=== PATIENT | male | born 1985 | race Caucasian/White ===

== ENCOUNTER 2019-09-06 07:54 | Emergency (ER) | payer SELFPAY ==
--- NOTE | 2019-09-06 08:14 | ED.PDOC ---
History of Present Illness - General Time Seen by Provider: 09/06/19 07:59 - History of Present Illness Initial Comments: 33 yo M PMH Anxiety/Depression ND Amphetamine and Marijuana abuse presents to ED c/o non command auditory hallucinations 'for a couple months now' Also reports chest pain sob denies visual hallucinations SI HI without suicide plan. Denies fever chills nausea vomiting diarrhea diaphoresis. No change in diet bowel or bladder symptoms disturb rest admits drinking and smoking admits FH HTN DM has no PMD for follow up no recent travel or contact with positive covid19 patients no other c/o today. Allergies/Adverse Reactions: Allergies Amoxicillin Adverse Reaction (Verified 09/06/19 08:15) Home Medications: Ambulatory Orders NK 09/06/19 Review of Systems - Review of Systems Constitutional: States: see HPI EENTM: States: see HPI Respiratory: States: see HPI Cardiology: States: see HPI Gastrointestinal/Abdominal: States: see HPI Genitourinary: States: see HPI Musculoskeletal: States: see HPI Skin: States: see HPI Neurological: States: see HPI Endocrine: States: see HPI Hematologic/Lymphatic: States: see HPI All other Systems: Reviewed and Negative Family Medical History - Family History Mother Living Status: Still Living Hx Family Diabetes: Yes Physical Exam - Physical Exam Eye Exam: bilateral normal Ears, Nose, Throat: normal ENT inspection Neck: non-tender, full range of motion Respiratory: no respiratory distress Cardiovascular/Chest: regular rate, rhythm Gastrointestinal/Abdominal: non tender, soft Rectal Exam: deferred Back Exam: normal inspection Extremity: normal range of motion, non-tender Neurologic: no motor/sensory deficits Skin Exam: normal color Progress - Progress Progress: 09/06/19 08:15 A/P-Auditory Hallucinations, Chest Pain SOB-iv bolus asa cbc cmp lipase trop ekg cxr athletic monitor pulse ox utox alcohol aspirin and tylenol levels reassess call behavioral health for psychosocial assessment EKG-non specific TW changes No STEMI 70bpm 09/06/19 08:35 09/06/19 09:32 Laboratory Tests 09/06/19 09/06/19 09/06/19 08:10 08:10 08:35 WBC 7.6 RBC 4.81 Hgb 15.3 Hct 45.2 MCV 94.0 MCH 31.7 H MCHC 33.8 RDW 13.6 Plt Count 212 MPV 8.6 Absolute Neuts (auto) 4.60 Absolute Lymphs (auto) 2.00 Absolute Monos (auto) 0.80 Absolute Eos (auto) 0.20 Absolute Basos (auto) 0.10 Neutrophils % 60.0 Lymphocytes % 25.9 Monocytes % 10.9 H Eosinophils % 2.5 Basophils % 0.7 PT INR PTT (SP) Sodium Potassium Chloride Carbon Dioxide Anion Gap BUN Creatinine BUN/Creatinine Ratio Random Glucose Serum Osmolality Lactic Acid Calcium Total Bilirubin AST ALT Alkaline Phosphatase Troponin I Serum Total Protein Albumin Globulin Albumin/Globulin Ratio Lipase Urine Color Yellow Urine Appearance Clear Urine pH 5.5 Ur Specific Lewis 1.025 Urine Protein Negative Urine Glucose (UA) Negative Urine Ketones Negative Urine Blood Negative Urine Nitrite Negative Urine Bilirubin Negative Urine Urobilinogen 0.2 Ur Leukocyte Esterase Negative Urine RBC 0 Urine WBC 0 Ur Epithelial Cells 0 Urine Bacteria 0 Salicylates Urine Opiates Screen Negative Acetaminophen Urine Barbiturates Negative Ur Phencyclidine Scrn Negative U Amphetamin/Meth Scrn Negative U Benzodiazepines Scrn Negative U Cocaine Metab Screen Negative U Cannabinoids Screen Positive H Ethyl Alcohol 09/06/19 09/06/19 09/06/19 08:35 08:35 08:35 WBC RBC Hgb Hct MCV MCH MCHC RDW Plt Count MPV Absolute Neuts (auto) Absolute Lymphs (auto) Absolute Monos (auto) Absolute Eos (auto) Absolute Basos (auto) Neutrophils % Lymphocytes % Monocytes % Eosinophils % Basophils % PT 10.4 INR 1.05 PTT (SP) 23.7 Sodium 134 L Potassium 3.9 Chloride 103 Carbon Dioxide 23 Anion Gap 11.9 L BUN 11 Creatinine 0.71 BUN/Creatinine Ratio 15.5 Random Glucose 92 Serum Osmolality 267.3 L Lactic Acid Calcium 8.8 Total Bilirubin 0.5 AST 18 ALT 15 Alkaline Phosphatase 58 Troponin I Serum Total Protein 7.1 Albumin 4.1 Globulin 3.0 Albumin/Globulin Ratio 1.4 Lipase 31 Urine Color Urine Appearance Urine pH Ur Specific Lewis Urine Protein Urine Glucose (UA) Urine Ketones Urine Blood Urine Nitrite Urine Bilirubin Urine Urobilinogen Ur Leukocyte Esterase Urine RBC Urine WBC Ur Epithelial Cells Urine Bacteria Salicylates < 4.0 Urine Opiates Screen Acetaminophen < 10.0 L Urine Barbiturates Ur Phencyclidine Scrn U Amphetamin/Meth Scrn U Benzodiazepines Scrn U Cocaine Metab Screen U Cannabinoids Screen Ethyl Alcohol < 5.40 09/06/19 09/06/19 08:35 08:35 WBC RBC Hgb Hct MCV MCH MCHC RDW Plt Count MPV Absolute Neuts (auto) Absolute Lymphs (auto) Absolute Monos (auto) Absolute Eos (auto) Absolute Basos (auto) Neutrophils % Lymphocytes % Monocytes % Eosinophils % Basophils % PT INR PTT (SP) Sodium Potassium Chloride Carbon Dioxide Anion Gap BUN Creatinine BUN/Creatinine Ratio Random Glucose Serum Osmolality Lactic Acid 1.2 Calcium Total Bilirubin AST ALT Alkaline Phosphatase Troponin I < 0.02 Serum Total Protein Albumin Globulin Albumin/Globulin Ratio Lipase Urine Color Urine Appearance Urine pH Ur Specific Lewis Urine Protein Urine Glucose (UA) Urine Ketones Urine Blood Urine Nitrite Urine Bilirubin Urine Urobilinogen Ur Leukocyte Esterase Urine RBC Urine WBC Ur Epithelial Cells Urine Bacteria Salicylates Urine Opiates Screen Acetaminophen Urine Barbiturates Ur Phencyclidine Scrn U Amphetamin/Meth Scrn U Benzodiazepines Scrn U Cocaine Metab Screen U Cannabinoids Screen Ethyl Alcohol - Results/Orders Results/Orders: EXAM DESCRIPTION: Chest,2 Views CLINICAL HISTORY: 33 years Male, chest pain COMPARISON: None. FINDINGS: 2 views/radiographs Heart size and pulmonary vessels are within normal limits. There is no pneumothorax or pleural effusion. The lungs are clear bilaterally. The soft tissues are unremarkable. No acute osseous findings. IMPRESSION: No acute cardiopulmonary abnormality. Electronically signed by: Romeo Pelayo MD 09/06/2019 8:21 AM CDT Departure - Departure Clinical Impression: Auditory hallucinations, SOB (shortness of breath), Psychological disorder, Marijuana abuse Chest pain Qualifiers: Chest pain type: unspecified Qualified Code(s): R07.9 - Chest pain, unspecified Time of Disposition: 09:39 Disposition: Discharge to Home or Self Care Condition: Good Home Medications: Ambulatory Orders NK 09/06/19
[2019-09-06 08:16] VITALS: TEMP 97.7
[2019-09-06] MEDS ORDERED: SODIUM CHLORIDE 0.9% 1000ML 1,000 ML IVS ONE (08:17)
[2019-09-06] MEDS ORDERED: ASPIRIN (CHEWABLE) 81 MG TAB PO ONE (08:17)
--- NOTE | 2019-09-06 08:23 | RAD ---
EXAM DESCRIPTION: Chest,2 Views CLINICAL HISTORY: 33 years Male, chest pain COMPARISON: None. FINDINGS: 2 views/radiographs Heart size and pulmonary vessels are within normal limits. There is no pneumothorax or pleural effusion. The lungs are clear bilaterally. The soft tissues are unremarkable. No acute osseous findings. IMPRESSION: No acute cardiopulmonary abnormality. Electronically signed by: Romeo Pelayo MD 09/06/2019 8:21 AM CDT
[2019-09-06 12:23] VITALS: BP 109/64; O2SAT 99
== END 2019-09-06 10:00 | disposition home or self-care (01) ==
LOC: ER 07:54
DX: R44.0 Auditory hallucinations (principal); R06.02 Shortness of breath; R07.9 Chest pain, unspecified; F12.10 Cannabis abuse, uncomplicated